=== PATIENT | male | born 1980 | race Caucasian/White ===

== ENCOUNTER 2018-01-10 14:59 | Emergency (ER) | payer OTHER ==
[2018-01-10 15:09] VITALS: BP 123/71; PULSE 86; TEMP 98.1; BMI 24.8
--- NOTE | 2018-01-10 15:27 | PDOC ---
History of Present Illness - General Chief Complaint: Weakness Stated Complaint: WEAKNESS Time Seen by Provider: 01/10/18 15:22 History Source: Patient, Old Records Exam Limitations: No Limitations - History of Present Illness Initial Comments: 37 y/o male presenting to [facility] ER via private auto complaining of fatigue and mental "fog." Symptoms are acute on chronic for greater than a year. He presents today for another medical opinion. He has been evaluated by his PCP, his secondary PCP, and a neurologist multiple times in the past year. Workup has included >8 blood tests (reportedly) and a MRI (outpatient). All have failed to suggest a diagnosis. He has been referred to a psychiatrist by multiple providers but pt has not been evaluated by one. PCP prescribed alprazolam but pt has not used it. Denies active SI, HI, auditory hallucinations , or visual hallucinations. Denies recent illness, recent travel, symptoms of narcolepsy, or symptoms of JAY JAY. Past History - Past Medical History Allergies/Adverse Reactions: Allergies Allergy/AdvReac Type Severity Reaction Status Date / Time No Known Allergies Allergy Verified 01/10/18 15:09 COPD: No - Suicide/Smoking/Psychosocial Hx Smoking History: Never smoked Review of Systems - Review of Systems Constitutional: Yes: Weight Stable. No: Chills, Diaphoresis, Fever Respiratory: No: Shortness of Breath Cardiac (ROS): No: Chest Pain ABD/GI: No: Constipated, Diarrhea, Nausea, Vomiting, Abdominal cramping Musculoskeletal: No: Muscle Weakness Integumentary: No: Bruising, Rash Neurological: No: Numbness, Paresthesia, Weakness Psychiatric: Yes: Depression, Emotional Problems Hematologic/Lymphatic: No: Easy Bleeding, Easy Bruising *Physical Exam - Vital Signs Last Vital Signs Temp Pulse Resp BP Pulse Ox 98.1 F 86 18 123/71 99 01/10/18 15:08 01/10/18 15:08 01/10/18 15:08 01/10/18 15:08 01/10/18 15:08 - Physical Exam Comments: Constitutional: Well-developed, well-nourished male in no acute distress. Found sitting upright on edge of hospital bed. Alert and oriented x4. Answered all questions appropriately and completely. Speech was non-labored, non-pressured. HEENT: Normocephalic. No obvious external signs of trauma. Hearing grossly normal. No nasal discharge. Neck is supple, trachea is midline. Cardiovascular: Regular rate and regular rhythm. No murmur, rubs, clicks, or gallops. Peripheral pulses: Radial pulses full. Respiratory: Breathing unlabored. Equal chest rise and fall. Clear to auscultation bilaterally. No stridor, no wheezing, no rhonchi. Gastrointestinal: abdomen is soft, non-tender, non-distended. Neuro: Alert and oriented. Moving all four extremities spontaneously. Ambulating without assistance. Gait normal. Skin: Warm, dry, and intact. Psych: Affect: subdued affect. Mood: depressed. Tearful during interview. 01/10/18 16:26 Medical Decision Making - Medical Decision Making 37 y/o previously healthy male complaining of physical fatigue, slowed cognition , and depressive mood. Afebrile. Vitals unremarkable for hypotension, tachycardia, or bradycardia. Benign physical exam. >15 min discussion about depressive mood and possible physical manifestations. Also discussed low likely usefulness of blood tests today. Pt expressed verbal understanding and declined. >10 min discussion about depressive feelings and personal safety. Pt again denies active SI or HI. Again endorsed feelings of depression for many months. Reinforced importance of psychiatry referral provided by multiple previous providers. Pt provided outpatient psychiatric and PCP referral. He expressed verbal understanding and agreement with plan to discharge home with outpatient follow up. *DC/Admit/Observation/Transfer Diagnosis at time of Disposition: Symptoms of depression - Discharge Dispostion Disposition: HOME Condition at time of disposition: Good Decision to Admit order: No - Referrals Referrals: Mercedez Cardoza MD [Staff Physician] - - Patient Instructions Printed Discharge Instructions: Depression in Men: How Is It Different?, DI for Depression -- Adult Additional Instructions: I would like you to follow up with a psychiatrist. I have placed a referral for you to see Dr. Cardoza. You will need to call the office to make an appointment. The number is included in this packet. You may also see your primary care physician for a referral. Go to the nearest emergency department if your symptoms worsen or you feel like you need additional emergency evaluation. Print Language: GERMAN - Post Discharge Activity
--- NOTE | 2018-01-10 16:06 | PDOC ---
Attending Attestation - Resident Resident Name: Heladio Nevarez - ED Attending Attestation I have performed the following: I have examined & evaluated the patient, The case was reviewed & discussed with the resident, I agree w/resident's findings & plan, Exceptions are as noted - HPI HPI: 01/10/18 16:02 37-year-old male with no past medical history presents with persistent chronic generalized fatigue for one and half years. Patient reports that she's been feeling generally weak. He has had numerous outpatient follow-ups including 2 physician evaluations and MRI of the brain and other workup which were reportedly negative. Patient came to the ER here for another opinion. Patient denies any suicide or homicidal ideation. - Physicial Exam PE: 01/10/18 16:03 GENERAL: Awake, alert, and fully oriented, in no acute distress HEAD: No signs of trauma EYES: EOMI, sclera anicteric, conjunctiva clear ENT: Auricles normal inspection, hearing grossly normal, nares patent NECK: Normal ROM, supple EXTREMITIES: Normal range of motion, no edema. No clubbing or cyanosis. No cords, erythema, or tenderness NEUROLOGICAL: Cranial nerves II through XII grossly intact. Normal speech, normal gait SKIN: Warm, Dry, normal turgor, no rashes or lesions noted. - Medical Decision Making 01/10/18 16:04 Vital Signs Temp Pulse Resp BP Pulse Ox 98.1 F 86 18 123/71 99 01/10/18 15:08 01/10/18 15:08 01/10/18 15:08 01/10/18 15:08 01/10/18 15:08 The patient is here requesting for another opinion on generalized weakness for 1.5 years. We advised the patient that at this time, we will not likely find a source of his generalized weakness if it has had numerous patient workup. He is not acute psychotic, SI or HI. He is however would like to find out what is going on. I advised that he may benefit from going to a center like [facility], [facility], [facility] , or [facility] for further outpatient opinion.
== END 2018-01-10 16:11 | disposition home or self-care (01) ==
LOC: JER 14:59
DX: F32.9 Major depressive disorder, single episode, unspecified (principal)
CPT/HCPCS: 99281-25

== ENCOUNTER 2019-11-02 15:23 | Emergency (ER) | payer OTHER ==
--- NOTE | 2019-11-02 15:33 | PDOC ---
Rapid Medical Evaluation Time Seen by Provider: 11/02/19 15:31 Medical Evaluation: Allergies Allergy/AdvReac Type Severity Reaction Status Date / Time No Known Allergies Allergy Verified 01/10/18 15:09 11/02/19 15:31 CC: left 5th digit pain x 2 days after exercising now with swelling Exam: noted edema of left 5th digit between mcp and pip joint . Decreased rom with flexion of pip joint Plan: none Discharge Disposition - Diagnosis Finger pain, left - Referrals - Patient Instructions - Post Discharge Activity
[2019-11-02 15:35] VITALS: BP 109/74; PULSE 84; BMI 22.9
[2019-11-02] MEDS ORDERED: IBUPROFEN 600 MG TABLET (FP) PO ONE ×2 (15:52→15:54)
[2019-11-02 16:06] VITALS: TEMP 98.1
--- NOTE | 2019-11-02 17:08 | PDOC ---
History of Present Illness - General Chief Complaint: Injury Stated Complaint: LT HAND SWOLLEN Time Seen by Provider: 11/02/19 15:31 History Source: Patient Exam Limitations: No Limitations Past History - Travel History Traveled outside of the country in the last 30 days: No Close contact w/someone who was outside of country & ill: No - Medical History Allergies/Adverse Reactions: Allergies Allergy/AdvReac Type Severity Reaction Status Date / Time No Known Allergies Allergy Verified 11/02/19 15:31 COPD: No - Psycho-Social/Smoking History Smoking History: Never smoked Have you smoked in the past 12 months: No - Substance Abuse Hx (Audit-C & DAST Scrn) How often the patient has a drink containing alcohol: Never Score: In Men: 4 or > Positive; In Women: 3 or > Positive: 0 Screen Result (Pos requires Nsg. Audit-10AR): Negative In the last yr the pt used illegal drug/Rx for NonMed reason: No Score: Yes response is considered Positive: 0 Screen Result (Positive result requires Nsg. DAST-10): Negative Review of Systems - Review of Systems Able to Perform ROS?: Yes Comments:: 11/02/19 19:49 CONSTITUTIONAL: Absent: fever, chills, diaphoresis, generalized weakness, malaise, loss of appetite MUSCULOSKELETAL: Present: left fifth finger pain Absent: myalgia, arthralgia, joint swelling SKIN: Absent: rash, itching, pallor NEUROLOGIC: Absent: headache, focal weakness or paresthesias, dizziness, unsteady gait, seizure, mental status changes, bladder or bowel incontinence PSYCHIATRIC: Absent: anxiety, depression, suicidal or homicidal ideation, hallucinations. Is the patient limited Danish proficient: No *Physical Exam - Vital Signs Last Vital Signs Temp Pulse Resp BP Pulse Ox 98.1 F 84 16 109/74 100 11/02/19 15:31 11/02/19 15:31 11/02/19 15:31 11/02/19 15:31 11/02/19 15:31 - Physical Exam 11/02/19 19:23 GENERAL: The patient is awake, alert, and fully oriented, in no acute distress. HEAD: Normal with no signs of trauma. EYES: Pupils equal, round and reactive to light, extraocular movements intact, sclera anicteric, conjunctiva clear. EXTREMITIES: Mild swelling noted to the base of the left fifth digit with tenderness palpation of the proximal phalanges. Decreased range of motion in the left finger however he is able to move the PIP and DIP independently of each other. Normal range of motion at all other joints, no edema. NEUROLOGICAL: Normal speech, normal gait. PSYCH: Normal mood, normal affect. SKIN: Warm, Dry, normal turgor, no rashes or lesions noted. ED Treatment Course - RADIOLOGY Radiology Studies Ordered: Category Date Time Status HAND- LEFT [RAD] Stat Radiology 11/02/19 15:52 Completed - Medications Given in the ED: ED Medications Discontinued Medications Generic Name Dose Route Start Last Admin Trade Name Cary PRN Reason Stop Dose Admin Ibuprofen 600 mg 11/02/19 15:52 11/02/19 15:53 Motrin - PO 11/02/19 15:53 600 mg ONCE ONE Administration Medical Decision Making - Medical Decision Making 11/02/19 19:24 Patient is a 39-year-old male with no past medical history presents the ER with left fifth digit pain. He states he was working out at the gym when a dumbbell pulled the finger back. He states that since then it is swollen and hurts to move. Denies numbness and tingling weakness effect extremity. He is right-hand dominant. A/P: Left fifth digit pain On exam there is swelling to the left fifth digit with range of motion however he is able to move the PIP and DIP independently of each other. X-ray shows no acute fractures. Tendon injury/sprain. Will refer to orthopedics for further management of his symptoms. Motrin ice recommended at this time. Discharge home I discussed the physical exam findings, ancillary test results and final diagnoses with the patient. I answered all of the patient's questions. The viral ent was satisfied with the care received and felt comfortable with the discharge plan and treatment plan. The Patient agrees to follow up with the primary care physician/specialist within 24-72 hours. Return precautions were given. Discharge - Discharge Information Problems reviewed: Yes Clinical Impression/Diagnosis: Finger pain, left Condition: Stable Disposition: HOME - Admission No - Follow up/Referral Referrals: Mikhail Ortiz MD [Primary Care Provider] - Jayjay Turner MD [Staff Physician] - - Patient Discharge Instructions Patient Printed Discharge Instructions: DI for Hand Pain Additional Instructions: You were evaluated for your left fifth digit injury. Please avoid any heavy lifting until your symptoms subside. Please ice the area for 20-minute intervals to help reduce swelling. Please take Motrin 600 mg every 6 hours for pain. Please follow-up with orthopedics in 1 to 3 days for further management and treatment of your symptoms. A referral has been provided to you. Return to the ER for worsening pain, redness to the area, fever or if you have any changes in your symptoms. - Post Discharge Activity Work/Back to School Note: Back to Work
== END 2019-11-02 17:16 | disposition home or self-care (01) ==
LOC: JERFT 15:23
DX: M79.645 Pain in left finger(s) (principal)
CPT/HCPCS: 73130-TC-LT-FY; 99283-25